=== PATIENT | male | born 1945 | race Native Hawaiian/Other Pacific Islander ===

== ENCOUNTER 2017-01-18 11:25 | Day surgery (SDC) | payer OTHER ==
[~2017-01-18] VITALS: Ht 30.5 cm; Wt 0.5 kg
[~2017-01-18 11:25] MED LIST: ASA LOW DOSE81 MG PO; DOXYCYCL HYC100 M4 PO; FISH OIL1 C10 PO; FLECAINIDE100 MG PO; GABA300C2 PO; OMEPRAZOLE40 MG PO; ONE DAIL1 PO; PRADAXA150 MG PO; SAW PALMETTO1 CA1 PO; [UNRECOGNIZED DRUG - OTHER] PO
== END 2017-01-18 14:57 | disposition home or self-care (01) ==
LOC: OR 11:25
PROC: 0DB68ZZ Excision of Stomach, Via Natural or Artificial Opening Endoscopic (ICD-10-PCS; principal; 2017-01-18)
PROC: 0DB88ZZ Excision of Small Intestine, Via Natural or Artificial Opening Endoscopic (ICD-10-PCS; 2017-01-18)
DX: K29.00 Acute gastritis without bleeding (principal); K21.0 Gastro-esophageal reflux disease with esophagitis; K31.7 Polyp of stomach and duodenum; R10.11 Right upper quadrant pain; R11.0 Nausea; R10.13 Epigastric pain
CPT/HCPCS: J2001; J2704

== ENCOUNTER 2017-02-17 08:44 | Outpatient (CLI) | payer OTHER | END 2017-02-17 10:00 | disposition home or self-care (01) | LOC: US 08:44 | DX: R10.11 Right upper quadrant pain (principal) ==

== ENCOUNTER 2017-11-15 21:56 | Emergency (ER) | payer OTHER ==
[~2017-11-15] VITALS: Ht 180.3 cm; Wt 64.0 kg
[2017-11-15 23:35] LABS: PLATELET COUNT 184 K/uL (142-355)
[2017-11-15 23:44] LABS: POTASSIUM 3.7 mmol/L (3.6-5.2)
[2017-11-16 00:33] VITALS: BP 124/76; TEMP 99.1
== END 2017-11-16 00:30 | disposition home or self-care (01) ==
LOC: ED 21:56
DX: J02.0 Streptococcal pharyngitis (principal); J11.1 Influenza due to unidentified influenza virus with other respiratory manifestations
CPT/HCPCS: 36415; 80053; 81000; 85027; 87804; 87880; 99283

== ENCOUNTER 2018-01-01 14:25 | Outpatient (CLI) | payer OTHER | END 2018-01-01 19:29 | disposition home or self-care (01) | LOC: LABW 14:25 | DX: G61.89 Other inflammatory polyneuropathies (principal); F41.8 Other specified anxiety disorders | CPT/HCPCS: 36415; 82607; 82784; 84165; 84439; 84443; 86039; 86430 ==

== ENCOUNTER 2018-06-27 10:27 | Outpatient (CLI) | payer OTHER | END 2018-06-27 21:33 | disposition home or self-care (01) | LOC: RAD 10:27 | DX: M54.17 Radiculopathy, lumbosacral region (principal) ==

== ENCOUNTER 2018-08-27 09:54 | Outpatient (CLI) | payer OTHER | END 2018-08-27 22:52 | disposition home or self-care (01) | LOC: MRI 09:54 | DX: M54.17 Radiculopathy, lumbosacral region (principal) | CPT/HCPCS: 36415; 82565; 84520; A9576 ==

== ENCOUNTER 2019-04-01 13:01 | Outpatient (CLI) | payer OTHER | END 2019-04-01 19:40 | disposition home or self-care (01) | LOC: MRI 13:01 | DX: M25.561 Pain in right knee (principal) ==

== ENCOUNTER 2019-08-12 08:49 | Outpatient (CLI) | payer OTHER | END 2019-08-12 20:21 | disposition home or self-care (01) | LOC: MRI 08:49 | DX: M75.52 Bursitis of left shoulder (principal) ==

== ENCOUNTER 2020-06-25 09:16 | Outpatient (CLI) | payer OTHER | END 2020-06-25 23:04 | disposition home or self-care (01) | LOC: RAD 09:16 | DX: Z01.818 Encounter for other preprocedural examination (principal) ==

== ENCOUNTER 2020-10-23 14:33 | Outpatient (CLI) | payer OTHER ==
[~2020-10-23] VITALS: Ht 180.3 cm; Wt 63.5 kg
[2020-10-23 15:08] LABS: PLATELET COUNT 192 K/uL (142-355)
[2020-10-23 15:17] LABS: POTASSIUM 3.8 mmol/L (3.6-5.2)
== END 2020-10-23 19:06 | disposition home or self-care (01) ==
LOC: INF 14:33
PROVIDERS: ATTEND Internal Medicine
DX: U07.1 COVID-19 (principal); Z79.899 Other long term (current) drug therapy
CPT/HCPCS: 36591; 80053; 85027; 96365; Q0239

== ENCOUNTER 2021-03-29 09:43 | Outpatient (CLI) | payer OTHER | END 2021-03-29 19:59 | disposition home or self-care (01) | LOC: MRI 09:43 | PROVIDERS: ATTEND Physician Assistant | DX: M16.11 Unilateral primary osteoarthritis, right hip (principal) ==

== ENCOUNTER 2021-07-05 10:54 | Outpatient (CLI) | payer OTHER ==
[2021-07-05 11:13] LABS: PLATELET COUNT 226 K/uL (142-355)
[2021-07-05 11:17] LABS: POTASSIUM 3.7 mmol/L (3.6-5.2)
== END 2021-07-05 20:14 | disposition home or self-care (01) ==
LOC: LABW 10:54
PROVIDERS: ATTEND Nurse Practitioner Family
DX: L71.8 Other rosacea (principal); Z79.899 Other long term (current) drug therapy
CPT/HCPCS: 36415; 80053; 85027

== ENCOUNTER 2021-08-06 09:25 | Outpatient (CLI) | payer OTHER | END 2021-08-06 19:22 | disposition home or self-care (01) | LOC: CT 09:25 | PROVIDERS: ATTEND Specialist | DX: R31.0 Gross hematuria (principal) ==